=== PATIENT | male | born 1960 | race Caucasian/White ===

== ENCOUNTER 2020-08-04 13:03 | Emergency (ER) | payer OTHER ==
[2020-08-04] MEDS ORDERED: Lidocaine 1% w/Epinephrine 1:100K 20 ML VIAL ONE (13:12)
[2020-08-04] MEDS ORDERED: Adacel (T-DAP) 0.5 ML SYRINGE ONE (14:07)
[2020-08-04] MEDS ORDERED: Bacitracin 1 PK ONE (14:07)
[2020-08-04] MEDS ORDERED: Cephalexin 250 MG CAP ONE ×2 (14:07→14:10)
== END 2020-08-04 14:05 | disposition home or self-care (01) ==
LOC: BURERS 13:03
DX: S81.812A Laceration without foreign body, left lower leg, initial encounter (principal); E11.9 Type 2 diabetes mellitus without complications; E78.5 Hyperlipidemia, unspecified; I10 Essential (primary) hypertension; J44.9 Chronic obstructive pulmonary disease, unspecified; Z23 Encounter for immunization; Z87.891 Personal history of nicotine dependence; Z79.82 Long term (current) use of aspirin; Z79.51 Long term (current) use of inhaled steroids; Z79.899 Other long term (current) drug therapy; W11.XXXA Fall on and from ladder, initial encounter
CPT/HCPCS: 12034; 90471; 90715